=== PATIENT | male | born 1965 | race Caucasian/White ===

== ENCOUNTER 2017-09-18 06:19 | Emergency (ER) | payer MEDICAID ==
[~2017-09-18] VITALS: Ht 180.3 cm; Wt 85.0 kg
[~2017-09-18 06:19] MED LIST: DIPH25CA83 PO; HYDR-3972 PO; IBUP-1984 PO; LEVE10002 PO; NYSPWD TP; OMEP40CA37 PO; ZONI100C6 PO
[2017-09-18] MEDS ORDERED: CYCL-1 PO (07:41)
[2017-09-18 07:50] VITALS: BP 136/99
[2017-09-21] MEDS ORDERED: IBUP-1986 PO (21:39)
[2017-09-21] MEDS ORDERED: CYCL-1 PO (21:39)
[2017-09-21] MEDS ORDERED: ACET-1995 PO (21:51)
[2017-09-21] MEDS ORDERED: ZONI100C6 PO (21:51)
[2017-09-21] MEDS ORDERED: LEVE10002 PO (21:51)
== END 2017-09-18 07:45 | disposition home or self-care (01) ==
LOC: ER 06:19
DX: S39.012A Strain of muscle, fascia and tendon of lower back, initial encounter (principal); X58.XXXA Exposure to other specified factors, initial encounter; Y93.89 Activity, other specified; Y92.89 Other specified places as the place of occurrence of the external cause; Y99.8 Other external cause status
CPT/HCPCS: 99283

== ENCOUNTER 2017-10-11 10:33 | Outpatient (CLI) | payer MEDICAID ==
[~2017-10-11 10:33] MED LIST changes: +ACET-1995 PO; +CYCL-1 PO; +IBUP-1986 PO
== END 2017-10-11 23:59 | disposition home or self-care (01) ==
LOC: RAD 10:33
DX: R56.1 Post traumatic seizures (principal)
CPT/HCPCS: 95819

== ENCOUNTER 2018-11-03 15:50 | Emergency (ER) | payer MEDICAID ==
[~2018-11-03] VITALS: Ht 177.8 cm; Wt 70.0 kg
[~2018-11-03 15:50] MED LIST changes: -ACET-1995 PO
[2018-11-03] MEDS ORDERED: ondansetron/PF 4mg/2ml inj IV ONE (16:25)
[2018-11-03] MEDS ORDERED: morphine 4 MG/ML inj SYRINge IV PRN (16:25)
[2018-11-03] MEDS ORDERED: normal saline 1000ML IV soln IVB ONE (16:25)
[2018-11-03 16:42] LABS: CLARITY,URINE CLEAR (Clear); COLOR,URINE YELLOW (Yellow); GLUCOSE, URINE NEGATIVE (Neg); KETONES,URINE NEGATIVE (Neg); LEUKOCYTE ESTERASE ,URINE NEGATIVE (Neg); NITRITES, URINE NEGATIVE (Neg); OCCULT BLOOD,URINE NEGATIVE (Neg); PH,URINE 6.5 (4.8-8.0); PROTEIN,URINE NEGATIVE (Neg); UROBILINOGEN,URINE 0.2 E.U/dL (0.2-1.0)
[2018-11-03 16:43] LABS: UA COLLECTION TYPE CLN CATCH MIDSTREAM
[2018-11-03 16:48] LABS: BASOPHILS # (AUTO) 0.1 X10'3 (0-0.2); EOSINOPHILS # (AUTO) 0.1 X10'3 (0-0.9); EOSINOPHILS % (AUTO) 1.3 % (0-6); HEMATOCRIT 43.3 % (42.0-52.0); HEMOGLOBIN 14.4 g/dl (14.0-17.9); LYMPHOCYTES % (AUTO) 27.6 % (21-51); MEAN CORPUSCULAR HEMOGLOBIN 30.7 PG (27.0-31.0); MEAN CORPUSCULAR HGB CONC 33.3 g/dL (33.0-36.5); MEAN CORPUSCULAR VOLUME 92.5 FL (78-98); MONOCYTES # (AUTO) 0.7 X10'3 (0-0.9); MONOCYTES % (AUTO) 8.8 % (2-12); NEUTROPHILS # (AUTO) 4.5 X10'3 (1.8-7.7); NEUTROPHILS % (AUTO) 61.3 % (42-75); PLATELET COUNT 324 X10'3 (140-440); RED BLOOD COUNT 4.69 X10'6 (4.70-6.10); WHITE BLOOD COUNT 7.4 X10'3 (4.5-11.0)
--- NOTE | 2018-11-03 17:04 | NUR ---
pt is resting quietly on gurney, 1st liter ns infusing w/o
[2018-11-03 17:06] LABS: PROTHROMBIN TIME 10.2 SECONDS (9.0-12.0)
[2018-11-03 17:07] LABS: ALANINE AMINOTRANSFERASE 34 U/L (12-78); ALBUMIN 3.6 G/DL (3.4-5.0); ALBUMIN/GLOBULIN RATIO 0.9 (1.1-1.5); ALKALINE PHOSPHATASE 115 IU/L (46-116); ANION GAP 14 (8-16); ASPARTATE AMINO TRANSFERASE 26 U/L (10-37); BILIRUBIN,TOTAL 0.3 MG/DL (0.1-1.0); BLOOD UREA NITROGEN 17 MG/DL (7-18); BUN/CREATININE RATIO 13.3 (5.4-32.0); CALCIUM 9.3 MG/DL (8.5-10.1); CHLORIDE 102 MMOL/L (99-107); CREATININE 1.28 MG/DL (0.60-1.10); GLUCOSE 113 MG/DL (70-104); LIPASE 274 U/L (73-393); POTASSIUM 3.6 MMOL/L (3.5-5.1); SODIUM 141 MMOL/L (135-145); TOTAL CARBON DIOXIDE 24.6 MMOL/L (24-32); TOTAL PROTEIN 7.5 G/DL (6.4-8.2); eGFR 59 ML/MIN
[2018-11-03 18:17] VITALS: BP 130/78
== END 2018-11-03 18:19 | disposition home or self-care (01) ==
LOC: ER 15:51
DX: R10.31 Right lower quadrant pain (principal); K40.90 Unilateral inguinal hernia, without obstruction or gangrene, not specified as recurrent; G89.29 Other chronic pain; F12.90 Cannabis use, unspecified, uncomplicated; Z85.038 Personal history of other malignant neoplasm of large intestine; Z79.899 Other long term (current) drug therapy
CPT/HCPCS: 36415; 74176; 80053; 81003; 83690; 85025; 85610; 96374; 96375; 99284; J2270; J2405; J7030

== ENCOUNTER 2018-12-07 02:28 | Emergency (ER) | payer MEDICAID ==
[2018-12-07 02:32] VITALS: BP 138/83
[2018-12-07] MEDS ORDERED: ZONI100C6 PO (02:40)
[2018-12-07] MEDS ORDERED: KEP500T PO (02:40)
[2018-12-08] MEDS ORDERED: CEPH250T PO (19:45)
[2018-12-08] MEDS ORDERED: IBUP-1984 PO (19:58)
== END 2018-12-07 03:02 | disposition home or self-care (01) ==
LOC: ER 02:29
DX: R56.9 Unspecified convulsions (principal); Z76.0 Encounter for issue of repeat prescription; G89.29 Other chronic pain; F12.90 Cannabis use, unspecified, uncomplicated; Z85.038 Personal history of other malignant neoplasm of large intestine; Z98.890 Other specified postprocedural states; Z79.899 Other long term (current) drug therapy
CPT/HCPCS: 99283

== ENCOUNTER 2018-12-08 17:23 | Emergency (ER) | payer MEDICAID ==
[~2018-12-08] VITALS: Ht 180.3 cm; Wt 68.0 kg
[~2018-12-08 17:23] MED LIST changes: +KEP500T PO
[2018-12-08] MEDS ORDERED: CEPH250T PO (19:45)
--- NOTE | 2018-12-08 19:45 | NUR ---
WHEN DISCUSSING DISCHARGE WITH PATIENT, HE NOW STATES AND SHOWED ME THE ANTIBIOTICS THAT HE IS TAKING KEPHLEX 500 MG Q 8HOURS PO PATIENT WAS ASKED BY MYSELF AND ELENA BUSH IF HE WAS ON ANTIBIOTICS AND IF HE WAS ON PAIN MEDICATION INCLUDING IBUPROFEN AND TYLENOL: PATIENT DENIED BEING ON ANY MEDICATION EXCEPT KEPPRA FOR SEIZURES.
--- NOTE | 2018-12-08 19:46 | NUR ---
INFORMED ELENA BUSH OF PATIENT ALREADY TAKING ANTIBIOTICS AND HIS CLAIM THAT HE CAN NOT WALK ON HIS FOOT. I SAW HIM WALKING ON BOTH FEET EARLIER WHEN HE WENT TO THE BATHROOM
[2018-12-08] MEDS ORDERED: IBUP-1984 PO (19:58)
[2018-12-08] MEDS ORDERED: traMADol 50MG tablet PO ONE (20:00)
--- NOTE | 2018-12-08 20:16 | NUR ---
gave pt crutches. he showed me he knows how to use them
[2018-12-08 20:38] VITALS: BP 143/71
== END 2018-12-08 20:48 | disposition home or self-care (01) ==
LOC: ER 17:24
DX: L03.116 Cellulitis of left lower limb (principal); G89.29 Other chronic pain; F12.90 Cannabis use, unspecified, uncomplicated; Z79.899 Other long term (current) drug therapy
CPT/HCPCS: 99283

== ENCOUNTER 2018-12-13 00:17 | Emergency (ER) | payer MEDICAID ==
[~2018-12-13] VITALS: Ht 177.8 cm; Wt 68.0 kg
[~2018-12-13 00:17] MED LIST changes: +CEPH250T PO
[2018-12-13] MEDS ORDERED: LORazepam 2 mg/ml vial IV ONE (00:40)
[2018-12-13] MEDS ORDERED: ketorolac trometh. 30mg/ml inj. IV ONE (00:40)
[2018-12-13] MEDS ORDERED: HYDROcodone/acetaminophen 5mg/325mg tablet PO ONE (00:40)
[2018-12-13] MEDS ORDERED: normal saline 1000ML IV soln IVB ONE (00:40)
[2018-12-13] MEDS ORDERED: LEVE10002 PO (00:42)
[2018-12-13 03:21] VITALS: BP 135/86
== END 2018-12-13 03:00 | disposition home or self-care (01) ==
LOC: ER 00:18
DX: G89.29 Other chronic pain (principal); M54.2 Cervicalgia; M54.5 Low back pain; F12.90 Cannabis use, unspecified, uncomplicated; Z86.69 Personal history of other diseases of the nervous system and sense organs; Z85.038 Personal history of other malignant neoplasm of large intestine; Z98.890 Other specified postprocedural states; Z79.899 Other long term (current) drug therapy
CPT/HCPCS: 96374; 96375; 99283; J1885; J2060; J7030

== ENCOUNTER 2021-12-02 06:59 | Emergency (ER) | payer MEDICAID ==
[~2021-12-02] VITALS: Ht 177.8 cm; Wt 81.8 kg
[~2021-12-02 06:59] MED LIST changes: -CEPH250T PO; +OMEP40CA21 PO; -OMEP40CA37 PO; -ZONI100C6 PO; +ZONI100C87 PO
[2021-12-02 07:48] LABS: BASOPHILS % (AUTO) 0.3 % (0-1); EOSINOPHILS # (AUTO) 0.5 X10'3 (0-0.9); HEMATOCRIT 43.1 % (42.0-52.0); HEMOGLOBIN 14.9 g/dl (14.0-17.9); LYMPHOCYTES # (AUTO) 2.1 X10'3 (1.1-4.8); LYMPHOCYTES % (AUTO) 20.2 % (21-51); MEAN CORPUSCULAR HEMOGLOBIN 31.6 PG (27.0-31.0); MEAN CORPUSCULAR HGB CONC 34.6 g/dL (33.0-36.5); MEAN CORPUSCULAR VOLUME 91.2 FL (78-98); MONOCYTES # (AUTO) 0.9 X10'3 (0-0.9); MONOCYTES % (AUTO) 8.4 % (2-12); NEUTROPHILS # (AUTO) 6.9 X10'3 (1.8-7.7); NEUTROPHILS % (AUTO) 66.1 % (42-75); PLATELET COUNT 265 X10'3 (140-440); RED BLOOD COUNT 4.72 X10'6 (4.70-6.10); WHITE BLOOD COUNT 10.5 X10'3 (4.5-11.0)
[2021-12-02 08:11] LABS: ALANINE AMINOTRANSFERASE 46 U/L (12-78); ALBUMIN 3.9 G/DL (3.4-5.0); ALBUMIN/GLOBULIN RATIO 1.1 (1.1-1.5); ALKALINE PHOSPHATASE 98 IU/L (46-116); ANION GAP 11 (8-16); ASPARTATE AMINO TRANSFERASE 53 U/L (10-37); BILIRUBIN,TOTAL 1.5 MG/DL (0.1-1.0); BLOOD UREA NITROGEN 16 MG/DL (7-18); CALCIUM 8.5 MG/DL (8.5-10.1); CHLORIDE 100 MMOL/L (99-107); CREATININE 0.84 MG/DL (0.60-1.10); GLUCOSE 146 MG/DL (70-104); POTASSIUM 3.4 MMOL/L (3.5-5.1); SODIUM 136 MMOL/L (135-145); TOTAL CARBON DIOXIDE 24.9 MMOL/L (24-32); TOTAL PROTEIN 7.6 G/DL (6.4-8.2); eGFR > 90 ML/MIN
[2021-12-02] MEDS ORDERED: ketorolac trometh. 30mg/ml inj. IV ONE (08:20)
[2021-12-02] MEDS ORDERED: ringers solution, lacted 1,000 ML IV ONE (08:20)
[2021-12-02 09:03] LABS: CREATINE KINASE 708 U/L (39-308); MAGNESIUM 2.3 MG/DL (1.5-2.4)
[2021-12-02 09:23] LABS: D-DIMER 0.35 MG/L FEU (0-0.50)
[2021-12-02 11:15] VITALS: BP 128/82
== END 2021-12-02 12:02 | disposition home or self-care (01) ==
LOC: ER 07:00
DX: R07.9 Chest pain, unspecified (principal); E86.0 Dehydration
CPT/HCPCS: 36415; 71045; 80053; 82550; 83735; 84484; 85025; 85379; 93005; 96374; 99285; J1885; J7120

== ENCOUNTER 2023-07-12 05:38 | Emergency (ER) | payer MEDICAID ==
[~2023-07-12] VITALS: Ht 177.8 cm; Wt 72.7 kg
[2023-07-12 05:42] VITALS: TEMP 99.1
[2023-07-12] MEDS ORDERED: normal saline 1000ML IV soln IVB ONE (05:50)
[2023-07-12] MEDS ORDERED: ondansetron/PF 4mg/2ml inj IV ONE (05:50)
[2023-07-12] MEDS ORDERED: mag hydrox/Alum hydrox/simeth 30ml oral suspension PO ONE (06:05)
[2023-07-12] MEDS ORDERED: LIDOcaine Viscous 15ml cup MM ONE (06:05)
[2023-07-12 06:21] LABS: BASOPHILS # (AUTO) 0.1 X10'3 (0-0.2); BASOPHILS % (AUTO) 0.6 % (0-1); EOSINOPHILS % (AUTO) 0.4 % (0-6); HEMATOCRIT 40.9 % (42.0-52.0); LYMPHOCYTES # (AUTO) 1.3 X10'3 (1.1-4.8); LYMPHOCYTES % (AUTO) 13.3 % (21-51); MEAN CORPUSCULAR HGB CONC 34.1 g/dL (33.0-36.5); MEAN CORPUSCULAR VOLUME 93.7 FL (78-98); MEAN PLATELET VOLUME 7.7 FL (7.4-10.4); MONOCYTES # (AUTO) 0.8 X10'3 (0-0.9); MONOCYTES % (AUTO) 7.9 % (2-12); NEUTROPHILS # (AUTO) 7.7 X10'3 (1.8-7.7); NEUTROPHILS % (AUTO) 77.8 % (42-75); PLATELET COUNT 303 X10'3 (140-440); RED BLOOD COUNT 4.36 X10'6 (4.70-6.10); RED CELL DISTRIBUTION WIDTH 12.8 % (11.5-14.5); WHITE BLOOD COUNT 9.9 X10'3 (4.5-11.0)
[2023-07-12 06:32] LABS: ALANINE AMINOTRANSFERASE 38 U/L (12-78); ALBUMIN 3.5 G/DL (3.4-5.0); ALKALINE PHOSPHATASE 108 IU/L (46-116); ANION GAP 13 (8-16); ASPARTATE AMINO TRANSFERASE 49 U/L (10-37); BILIRUBIN,TOTAL 0.6 MG/DL (0.1-1.0); BLOOD UREA NITROGEN 12 MG/DL (7-18); BUN/CREATININE RATIO 20.7 (10.0-20.0); CALCIUM 8.5 MG/DL (8.5-10.1); CHLORIDE 97 MMOL/L (99-107); CREATININE 0.58 MG/DL (0.60-1.10); GLUCOSE 97 MG/DL (70-104); POTASSIUM 3.6 MMOL/L (3.5-5.1); SODIUM 135 MMOL/L (135-145); TOTAL CARBON DIOXIDE 24.8 MMOL/L (24-32); TOTAL PROTEIN 7.1 G/DL (6.4-8.2); eCRCL 143 ML/MIN; eGFR > 90 ML/MIN
[2023-07-12 06:37] LABS: LIPASE 68 U/L (16-77)
[2023-07-12] MEDS ORDERED: ONDA4TAB12 PO (08:32)
[2023-07-12 09:01] VITALS: BP 157/97; PULSE 67; RESP 15; O2SAT 98
== END 2023-07-12 10:09 | disposition home or self-care (01) ==
LOC: ER 05:39
DX: R11.2 Nausea with vomiting, unspecified (principal); R10.13 Epigastric pain; E11.9 Type 2 diabetes mellitus without complications; G89.29 Other chronic pain; F12.90 Cannabis use, unspecified, uncomplicated; Z59.00 Homelessness unspecified; Z98.890 Other specified postprocedural states; Z85.038 Personal history of other malignant neoplasm of large intestine; Z72.89 Other problems related to lifestyle; Z79.899 Other long term (current) drug therapy
CPT/HCPCS: 36415; 71045; 80053; 82948; 83690; 84484; 85025; 93005; 96361; 96374; 99285; J2405; J7030

== ENCOUNTER 2024-08-30 00:11 | Inpatient (IN) | payer MEDICAID ==
[~2024-08-30] VITALS: Ht 175.3 cm; Wt 50.9 kg
[~2024-08-30 00:11] MED LIST changes: +ONDA-243 PO
[2024-08-30 01:45] LABS: BASOPHILS % (AUTO) 0.2 % (0-1); EOSINOPHILS % (AUTO) 0.1 % (0-6); HEMOGLOBIN 12.7 g/dl (14.0-17.9); LYMPHOCYTES # (AUTO) 1.5 X10'3 (1.1-4.8); LYMPHOCYTES % (AUTO) 15.1 % (21-51); MEAN CORPUSCULAR HEMOGLOBIN 32.3 PG (27.0-31.0); MEAN CORPUSCULAR HGB CONC 35.3 g/dL (33.0-36.5); MEAN CORPUSCULAR VOLUME 91.5 FL (78-98); MEAN PLATELET VOLUME 7.9 FL (7.4-10.4); MONOCYTES # (AUTO) 0.9 X10'3 (0-0.9); MONOCYTES % (AUTO) 8.8 % (2-12); NEUTROPHILS # (AUTO) 7.7 X10'3 (1.8-7.7); NEUTROPHILS % (AUTO) 75.8 % (42-75); PLATELET COUNT 170 X10'3 (140-440); RED BLOOD COUNT 3.94 X10'6 (4.70-6.10); WHITE BLOOD COUNT 10.2 X10'3 (4.5-11.0)
[2024-08-30 02:02] LABS: ALANINE AMINOTRANSFERASE 40 U/L (12-78); ALBUMIN 2.9 G/DL (3.4-5.0); ALBUMIN/GLOBULIN RATIO 0.8 (1.1-1.5); ALKALINE PHOSPHATASE 77 IU/L (46-116); ANION GAP 5 (8-16); ASPARTATE AMINO TRANSFERASE 42 U/L (10-37); BILIRUBIN,TOTAL 0.7 MG/DL (0.1-1.0); BLOOD UREA NITROGEN 11 MG/DL (7-18); BUN/CREATININE RATIO 20.8 (10.0-20.0); CALCIUM 8.2 MG/DL (8.5-10.1); CHLORIDE 97 MMOL/L (99-107); CREATININE 0.53 MG/DL (0.60-1.10); GLUCOSE 112 MG/DL (70-104); LIPASE 99 U/L (16-77); POTASSIUM 3.6 MMOL/L (3.5-5.1); SODIUM 130 MMOL/L (135-145); TOTAL CARBON DIOXIDE 28.1 MMOL/L (24-32); TOTAL PROTEIN 6.6 G/DL (6.4-8.2); eCRCL 108 ML/MIN; eGFR > 90 ML/MIN
[2024-08-30] MEDS: LIDOcaine 2% Viscous 15ml cup MM ONE (02:43)
[2024-08-30] MEDS: ondansetron 4mg rapidly disintigrating tab PO ONE (02:43)
[2024-08-30] MEDS: mag hydrox/Alum hydrox/simeth 30ml oral suspension PO ONE (02:45)
[2024-08-30] MEDS: normal saline 1000ml 1,000 ML IV ONE (04:00)
[2024-08-30 05:39] LABS: BILIRUBIN,URINE NEGATIVE (Neg); CLARITY,URINE CLEAR (Clear); COLOR,URINE YELLOW (Yellow); GLUCOSE, URINE NEGATIVE (Neg); KETONES,URINE NEGATIVE (Neg); LEUKOCYTE ESTERASE ,URINE NEGATIVE (Neg); NITRITES, URINE NEGATIVE (Neg); OCCULT BLOOD,URINE NEGATIVE (Neg); PROTEIN,URINE NEGATIVE (Neg)
[2024-08-30 06:27] LABS: UA COLLECTION TYPE URINAL
[2024-08-30] MEDS ORDERED: magnesium Cl slow-release 64mg tablet PO PRN (11:55)
[2024-08-30] MEDS ORDERED: ondansetron/PF 4mg/2ml inj IV PRN (11:55)
[2024-08-30] MEDS ORDERED: acetaminophen 325mg tablet PO PRN (11:55)
[2024-08-30] MEDS ORDERED: potassium Cl 20 mEq SR tablet PO PRN ×2 (11:55)
[2024-08-30] MEDS ORDERED: magnesium sulf-water 2g/50mL 50 ML IV PRN (11:55)
[2024-08-30] MEDS ORDERED: potassium Cl 40MEQ/1/2NS 520ml 520 ML IV PRN (11:55)
[2024-08-30] MEDS ORDERED: morphine 2 MG/ML inj. syringe IV PRN (11:55)
[2024-08-30] MEDS ORDERED: magnesium sulf-water 4G/100mL 100 ML IV PRN (11:55)
[2024-08-30 12:23] LABS: MAGNESIUM 2.1 MG/DL (1.5-2.4); POTASSIUM 3.9 MMOL/L (3.5-5.1)
[2024-08-30] MEDS: normal saline 1000ml 1,000 ML IV SCH (12:37)
[2024-08-30 16:41] VITALS: BP 118/80; PULSE 83; RESP 16; TEMP 99.2; O2SAT 97
[2024-08-30] MEDS ORDERED: K and/or MAG REPLACEMENT MC SCH (20:00)
== END 2024-08-30 16:55 | disposition home or self-care (01) ==
LOC: ER 00:13 → ED HOLD 11:57
PROVIDERS: ADMIT Internal Medicine; ATTEND Internal Medicine
DX: K81.0 Acute cholecystitis (principal); E11.9 Type 2 diabetes mellitus without complications; G40.909 Epilepsy, unspecified, not intractable, without status epilepticus; Z59.00 Homelessness unspecified; Z85.038 Personal history of other malignant neoplasm of large intestine; Z79.899 Other long term (current) drug therapy
CPT/HCPCS: 36415; 74176; 76700; 78226; 80053; 81003; 83690; 83735; 84132; 84484; 85025; 99285; A4620; A9537; G0378; J7030